=== PATIENT | female | born 1985 | race African-American/Black ===

== ENCOUNTER 2017-01-10 16:55 | Inpatient (IN) | payer MEDICAID ==
[~2017-01-10] VITALS: Ht 165.1 cm; Wt 251.3 kg
[~2017-01-10 16:55] MED LIST: NOCURR
[2017-01-10] MEDS ORDERED: ASEN10TA8 SL (17:09)
[2017-01-10] MEDS ORDERED: MIRT15 PO (17:09)
[2017-01-10] MEDS ORDERED: DIVA500T35 PO ×3 (17:09)
[2017-01-10 17:45] LABS: BASOPHILS % (AUTO) 0.1 % (0.0-2.0); EOSINOPHILS % (AUTO) 0.6 % (1.0-6.0); HEMATOCRIT 38.2 % (36-46); HEMOGLOBIN 12.8 g/dL (12.0-16.0); LYMPHOCYTES # (AUTO) 2.8 K/uL (1.0-4.8); LYMPHOCYTES % (AUTO) 40.6 % (22.0-44.0); MEAN CORPUSCULAR HEMOGLOBIN 31.2 pg (26.0-34.0); MEAN CORPUSCULAR HGB CONC 33.6 G/dL (31.0-37.0); MEAN CORPUSCULAR VOLUME 93 fL (80-100); MONOCYTES # (AUTO) 0.5 K/uL (0.1-1.0); MONOCYTES % (AUTO) 7.8 % (2.0-9.0); NEUTROPHILS # (AUTO) 3.5 K/uL (1.8-7.7); NEUTROPHILS % (AUTO) 50.9 % (40.0-70.0); PLATELET COUNT (AUTO) 294 K/uL (150-450); RED BLOOD CELL COUNT(AUTO) 4.11 MIL/uL (4.00-5.20); RED CELL DISTRIBUTION WIDTH 12.6 % (11.5-14.5)
[2017-01-10 17:54] LABS: ANION GAP 10 mmol/L (8-16); CALCIUM, TOTAL 8.8 mg/dL (8.8-10.5); CARBON DIOXIDE 25 mmol/L (22-29); CHLORIDE 105 mmol/L (98-107); CREATININE 0.89 mg/dL (0.60-1.30); GLOMERULAR FILTR. RATE CALC > 60 mL/min (>60); POTASSIUM 3.6 mmol/L (3.5-5.1); SODIUM SERUM 140 mmol/L (136-145); UREA NITROGEN, BLOOD 6 mg/dL (7-18)
[2017-01-10 17:59] LABS: ALANINE AMINOTRANSFERASE 46 U/L (12-78); ALBUMIN 3.4 g/dL (3.4-5.0); ASPARTATE AMINOTRANSFERASE 21 U/L (15-37); BILIRUBIN,TOTAL 0.2 mg/dL (0.1-1.0)
[2017-01-10 18:29] LABS: APPEARANCE,URINE CLOUDY (CLEAR); GLUCOSE, URINE (UA) NEGATIVE (NEGATIVE); KETONES,URINE NEGATIVE (NEGATIVE); LEUKOCYTE ESTERASE ,URINE LARGE (NEGATIVE); OCCULT BLOOD,URINE NEGATIVE (NEGATIVE); PROTEIN,URINE NEGATIVE (NEGATIVE)
[2017-01-10 18:38] LABS: SQUAMOUS EPITHELIAL CELL,UR Many /LPF (None Seen)
[2017-01-10 18:40] LABS: URINALYSIS COMMENT Few Trichomonas seen
[2017-01-10 18:41] LABS: RBC,URINE 0-2 /HPF (0-2)
[2017-01-10] MEDS ORDERED: MetroNIDAZOLE 250 MG TABLET PO ONE (19:00)
[2017-01-10] MEDS ORDERED: CEPHALEXIN MONOHYDRATE 500 MG CAPSULE PO ONE (19:00)
[2017-01-10] MEDS ORDERED: HALOPERIDOL 5 MG TABLET PO ONE (19:45)
[2017-01-10] MEDS ORDERED: DiphenhydrAMINE HCL 25 MG CAPSULE PO ONE (19:45)
[2017-01-10] MEDS ORDERED: LORazepam 2 MG TABLET PO ONE (19:45)
[2017-01-10] MEDS ORDERED: ZOLPIDEM TARTRATE 10 MG TABLET PO PRN (20:00)
[2017-01-10] MEDS ORDERED: HALOPERIDOL 5 MG TABLET PO PRN (20:00)
[2017-01-11 18:48] VITALS: BP 116/68
[2017-01-11] MEDS ORDERED: ACETAMINOPHEN 325 MG TABLET PO PRN (21:15)
[2017-01-11] MEDS ORDERED: IBUPROFEN 400 MG TABLET PO PRN (21:15)
[2017-01-12 03:05] VITALS: BP 117/66
[2017-01-12] MEDS: LORazepam 2 MG TABLET PO PRN ×2 (03:09→16:52)
[2017-01-12 08:39] VITALS: BP 121/77
[2017-01-12] MEDS: CIPROFLOXACIN HCL 500 MG TABLET PO SCH ×2 (08:41→16:52)
[2017-01-12] MEDS: NICOTINE 14 MG/24 HOUR PATCH TD SCH (09:25)
[2017-01-12] MEDS ORDERED: DIVALPROEX SODIUM 500 MG DR TABLET PO ONE (11:45)
[2017-01-12] MEDS: ASENAPINE 5 MG SUBLINGUAL TABLET SL SCH (11:54)
[2017-01-12] MEDS ORDERED: HydrOXYzine PAMOATE 50 MG CAPSULE PO PRN (14:15)
[2017-01-12] MEDS ORDERED: MAGNESIUM HYDROXIDE SUSPENSION 30 ML UDCUP PO PRN (14:15)
[2017-01-12] MEDS ORDERED: GuaiFENesin/D-METHORPHAN [SUGAR-FREE] 200-20MG/10 ML SYRUP UDCUP PO PRN (14:15)
[2017-01-12] MEDS ORDERED: ACETAMINOPHEN 325 MG TABLET PO PRN (14:15)
[2017-01-12] MEDS ORDERED: TUBERCULIN, PURIFIED PROTEIN DERIVATIVE 5 TU/0.1 ML SYG ID ONE (14:15)
[2017-01-12] MEDS ORDERED: LOPERAMIDE HCL 2 MG CAPSULE PO PRN (14:15)
[2017-01-12] MEDS ORDERED: PROMETHAZINE HCL 25 MG TABLET PO PRN (14:15)
[2017-01-12] MEDS ORDERED: MAG HYDROX/AL HYDROX/SIMETH ES 30 ML SUSPENSION UDCUP PO PRN (14:15)
[2017-01-12 16:17] VITALS: BP 126/74
[2017-01-12] MEDS: THIAMINE HCL 100 MG TABLET PO SCH (16:52)
[2017-01-12] MEDS: DIVALPROEX SODIUM 500 MG DR TABLET PO SCH (16:52)
[2017-01-12] MEDS ORDERED: NALT50TA PO (17:15)
[2017-01-12] MEDS ORDERED: PRAZ2 PO (17:15)
[2017-01-12] MEDS ORDERED: ASEN10TA8 SL (17:15)
[2017-01-12] MEDS ORDERED: DIVA500T35 PO (17:15)
[2017-01-12] MEDS ORDERED: ASEN5TAB6 SL (17:15)
[2017-01-12 20:12] VITALS: BP 143/60
[2017-01-12] MEDS ORDERED: PRAZOSIN HCL 2 MG CAPSULE PO SCH ×2 (21:00)
[2017-01-12] MEDS ORDERED: ASENAPINE 10 MG SUBLINGUAL TABLET SL SCH (21:00)
[2017-01-12 21:15] VITALS: BP 135/70
[2017-01-13 06:45] VITALS: BP 115/82
[2017-01-13] MEDS ORDERED: CIPR-278 PO (08:51)
[2017-01-13] MEDS ORDERED: FOLIC ACID 1 MG TABLET PO SCH ×2 (09:00)
[2017-01-13] MEDS ORDERED: NALTREXONE HCL 50 MG TABLET PO SCH (09:00)
[2017-01-13] MEDS ORDERED: MULTIVITAMINS WITH MINERALS, THERAPEUTIC TABLET PO SCH (09:00)
[2017-01-13 09:02] VITALS: BP 118/73
[2017-01-13] MEDS: NICOTINE 14 MG/24 HOUR PATCH TD SCH (10:01)
[2017-01-13] MEDS: ASENAPINE 5 MG SUBLINGUAL TABLET SL SCH (10:01)
[2017-01-13] MEDS: DIVALPROEX SODIUM 500 MG DR TABLET PO SCH (10:01)
[2017-01-13] MEDS: CIPROFLOXACIN HCL 500 MG TABLET PO SCH (10:01)
[2017-01-13] MEDS: THIAMINE HCL 100 MG TABLET PO SCH (10:01)
== END 2017-01-13 12:00 | disposition home or self-care (01) | DRG 750 ==
LOC: EMS 16:57 → B3A 01-11 14:23
PROVIDERS: ADMIT Psychiatry & Neurology Child & Adolescent Psychiatry; ATTEND Psychiatry & Neurology Psychiatry
DX: F25.9 Schizoaffective disorder, unspecified (principal); Z68.45 Body mass index [BMI] 70 or greater, adult; R45.851 Suicidal ideations; N39.0 Urinary tract infection, site not specified; B18.2 Chronic viral hepatitis C; E66.9 Obesity, unspecified; F32.9 Major depressive disorder, single episode, unspecified; F12.20 Cannabis dependence, uncomplicated; F17.200 Nicotine dependence, unspecified, uncomplicated; G40.909 Epilepsy, unspecified, not intractable, without status epilepticus; Z65.3 Problems related to other legal circumstances; Z91.19 Patient's noncompliance with other medical treatment and regimen; Z91.048 Other nonmedicinal substance allergy status; Z88.1 Allergy status to other antibiotic agents
CPT/HCPCS: 87081; 87086; 99285; G0480

== ENCOUNTER 2017-03-27 10:50 | Emergency (ER) | payer MEDICAID ==
[~2017-03-27] VITALS: Ht 167.6 cm; Wt 115.9 kg
[~2017-03-27 10:50] MED LIST changes: +ASEN10TA8 SL; +ASEN5TAB6 SL; +CIPR-278 PO; +DIVA500T35 PO; +NALT50TA PO; -NOCURR; +PRAZ2 PO
[2017-03-27] MEDS ORDERED: GABA-533 PO (10:55)
[2017-03-27] MEDS ORDERED: KETOROLAC TROMETHAMINE 30 MG/ML VIAL IVP ONE (11:15)
[2017-03-27] MEDS ORDERED: ONDANSETRON HCL 4 MG/2 ML VIAL IVP ONE (11:15)
[2017-03-27] MEDS ORDERED: SODIUM CHLORIDE 0.9% 1,000 ML IV ONE (11:15)
[2017-03-27 11:58] LABS: APPEARANCE,URINE CLOUDY (CLEAR); GLUCOSE, URINE (UA) NEGATIVE (NEGATIVE); KETONES,URINE NEGATIVE (NEGATIVE); LEUKOCYTE ESTERASE ,URINE NEGATIVE (NEGATIVE); OCCULT BLOOD,URINE NEGATIVE (NEGATIVE); PH,URINE 7.5 (5.0-8.0); PROTEIN,URINE TRACE (NEGATIVE)
[2017-03-27 12:03] LABS: ADD UA MICROSCOPIC YES
[2017-03-27 12:04] LABS: RBC,URINE None Seen /HPF (0-2); SQUAMOUS EPITHELIAL CELL,UR Many /LPF (None Seen); WBC,URINE None Seen /HPF (0-5)
[2017-03-27 12:06] LABS: BASOPHILS % (AUTO) 0.4 % (0.0-2.0); EOSINOPHILS % (AUTO) 1.4 % (1.0-6.0); HEMOGLOBIN 13.7 g/dL (12.0-16.0); LYMPHOCYTES # (AUTO) 2.4 K/uL (1.0-4.8); LYMPHOCYTES % (AUTO) 50.3 % (22.0-44.0); MEAN CORPUSCULAR HEMOGLOBIN 31.9 pg (26.0-34.0); MEAN CORPUSCULAR HGB CONC 33.5 G/dL (31.0-37.0); MEAN CORPUSCULAR VOLUME 95 fL (80-100); MONOCYTES # (AUTO) 0.4 K/uL (0.1-1.0); NEUTROPHILS # (AUTO) 1.9 K/uL (1.8-7.7); NEUTROPHILS % (AUTO) 38.9 % (40.0-70.0); PLATELET COUNT (AUTO) 240 K/uL (150-450); RED BLOOD CELL COUNT(AUTO) 4.31 MIL/uL (4.00-5.20); RED CELL DISTRIBUTION WIDTH 14.1 % (11.5-14.5); WHITE BLOOD COUNT (AUTO) 4.8 K/uL (4.5-11.0)
[2017-03-27 12:10] LABS: ANION GAP 9 mmol/L (8-16); CALCIUM, TOTAL 8.8 mg/dL (8.8-10.5); CARBON DIOXIDE 26 mmol/L (22-29); CHLORIDE 106 mmol/L (98-107); GLOMERULAR FILTR. RATE CALC > 60 mL/min (>60); SODIUM SERUM 141 mmol/L (136-145); UREA NITROGEN, BLOOD 9 mg/dL (7-18)
[2017-03-27 12:17] LABS: ALANINE AMINOTRANSFERASE 21 U/L (12-78); ALBUMIN 3.5 g/dL (3.4-5.0); ASPARTATE AMINOTRANSFERASE 10 U/L (15-37); BILIRUBIN,TOTAL 0.2 mg/dL (0.1-1.0); TOTAL PROTEIN, SERUM 7.5 g/dL (6.4-8.2)
[2017-03-27 13:01] VITALS: BP 110/64
== END 2017-03-27 13:03 | disposition home or self-care (01) ==
LOC: EMS 10:58
DX: R10.13 Epigastric pain (principal); R11.2 Nausea with vomiting, unspecified; F14.90 Cocaine use, unspecified, uncomplicated; F15.90 Other stimulant use, unspecified, uncomplicated; F17.210 Nicotine dependence, cigarettes, uncomplicated; Z88.1 Allergy status to other antibiotic agents
CPT/HCPCS: 36415; 80053; 81001; 83690; 84703; 85025; 96374; 96375; 99284; 99406; J1885; J2405; J7030

== ENCOUNTER 2020-07-05 19:54 | Emergency (ER) | payer MEDICAID ==
[~2020-07-05] VITALS: Ht 167.6 cm; Wt 89.1 kg
[~2020-07-05 19:54] MED LIST changes: -ASEN10TA8 SL; -ASEN5TAB6 SL; -CIPR-278 PO; +DIVA-112 PO; -DIVA500T35 PO; +GABA-1201 PO; -NALT50TA PO
[2020-07-05] MEDS ORDERED: MIRT-89 PO (20:35)
[2020-07-05] MEDS ORDERED: ZIPR60CA2 PO (20:35)
[2020-07-05] MEDS ORDERED: WARF5TAB40 PO (20:35)
[2020-07-05] MEDS ORDERED: METO50 PO (20:35)
[2020-07-05 21:47] LABS: BASOPHILS % (AUTO) 0.3 % (0.0-2.0); EOSINOPHILS % (AUTO) 0.8 % (1.0-6.0); HEMATOCRIT 37.8 % (36-46); HEMOGLOBIN 12.6 g/dL (12.0-16.0); LYMPHOCYTES % (AUTO) 19.2 % (22.0-44.0); MEAN CORPUSCULAR HEMOGLOBIN 30.1 pg (26.0-34.0); MEAN CORPUSCULAR HGB CONC 33.3 G/dL (31.0-37.0); MEAN CORPUSCULAR VOLUME 90 fL (80-100); MONOCYTES # (AUTO) 0.4 K/uL (0.1-1.0); MONOCYTES % (AUTO) 7.9 % (2.0-9.0); NEUTROPHILS # (AUTO) 3.9 K/uL (1.8-7.7); NEUTROPHILS % (AUTO) 71.8 % (40.0-70.0); PLATELET COUNT (AUTO) 207 K/uL (150-450); RED BLOOD CELL COUNT(AUTO) 4.19 MIL/uL (4.00-5.20); RED CELL DISTRIBUTION WIDTH 14.5 % (11.5-14.5)
[2020-07-05 21:59] LABS: ANION GAP 9 mmol/L (8-16); CARBON DIOXIDE 27 mmol/L (22-29); CHLORIDE 101 mmol/L (98-107); CREATININE 1.14 mg/dL (0.60-1.30); GLOMERULAR FILTR. RATE CALC > 60 mL/min (>60); GLUCOSE,RANDOM 84 mg/dL (70-110); POTASSIUM 4.2 mmol/L (3.5-5.1); SODIUM SERUM 137 mmol/L (136-145); UREA NITROGEN, BLOOD 17 mg/dL (7-18)
[2020-07-05 22:01] LABS: INR 1.9 (0.9-1.1); PROTHROMBIN TIME 19.2 SEC (9.4-11.6)
[2020-07-05] MEDS ORDERED: DEXAMETHASONE SOD PHOS 4 MG/ML 5 ML VIAL IVP ONE (23:45)
[2020-07-05] MEDS ORDERED: DiphenhydrAMINE HCL 50 MG/ML VIAL IVP ONE (23:45)
[2020-07-05] MEDS ORDERED: SODIUM CHLORIDE 0.9% 1,000 ML IV ONE (23:45)
[2020-07-05] MEDS ORDERED: ACETAMINOPHEN 500 MG TABLET PO ONE (23:45)
[2020-07-05] MEDS ORDERED: PB/HYOSCY/ATR/SCOP/LIDO/MAALOX 55 ML BOTTLE PO ONE (23:45)
[2020-07-05] MEDS ORDERED: METOCLOPRAMIDE HCL 5 MG/ML 2 ML VIAL IVP ONE (23:45)
[2020-07-06 02:09] LABS: APPEARANCE,URINE CLEAR (CLEAR); BILIRUBIN,URINE NEGATIVE (NEGATIVE); GLUCOSE, URINE (UA) NEGATIVE (NEGATIVE); KETONES,URINE NEGATIVE (NEGATIVE); LEUKOCYTE ESTERASE ,URINE NEGATIVE (NEGATIVE); NITRATE,URINE NEGATIVE (NEGATIVE); OCCULT BLOOD,URINE NEGATIVE (NEGATIVE); PROTEIN,URINE NEGATIVE (NEGATIVE)
[2020-07-06 02:18] LABS: AMPHET/METH SCREEN,URINE NEGATIVE (NEGATIVE); BARBITURATE SCREEN, URINE NEGATIVE (NEGATIVE); BENZODIAZEPINES SCREEN,URINE NEGATIVE (NEGATIVE); CANNABINOID SCREEN,URINE NEGATIVE (NEGATIVE); COCAINE SCREEN,URINE NEGATIVE (NEGATIVE); METHADONE SCREEN, URINE NEGATIVE (NEGATIVE); OPIATE SCREEN,URINE NEGATIVE (NEGATIVE)
[2020-07-06 02:21] LABS: PHENCYCLIDINE SCREEN,URINE NEGATIVE (NEGATIVE)
[2020-07-06 02:31] LABS: BACTERIA,URINE None Seen /HPF (None Seen); RBC,URINE 0-2 /HPF (0-2); WBC,URINE 0-2 /HPF (0-5)
[2020-07-06 03:43] VITALS: BP 127/79
== END 2020-07-06 03:46 | disposition home or self-care (01) ==
LOC: EMS 19:54
DX: K21.9 Gastro-esophageal reflux disease without esophagitis (principal); I11.9 Hypertensive heart disease without heart failure; F31.9 Bipolar disorder, unspecified; F17.210 Nicotine dependence, cigarettes, uncomplicated; F14.90 Cocaine use, unspecified, uncomplicated; F15.90 Other stimulant use, unspecified, uncomplicated; Z88.0 Allergy status to penicillin; Z79.899 Other long term (current) drug therapy
CPT/HCPCS: 36415; 71045; 80048; 80307; 81001; 84484; 84703; 85025; 85610; 93005; 96361; 96374; 96375; 99285; J1100; J1200; J2765; J7030